=== PATIENT | female | born 1995 | race American Indian/Alaskan Native ===

== ENCOUNTER 2020-03-20 09:50 | Emergency (ER) | payer OTHER ==
[2020-03-20] MEDS ORDERED: AZITHROMYCIN 250 MG TAB PO ONE (10:51)
[2020-03-20] MEDS ORDERED: LIDOCAINE-MPF (1%) 10 MG/1 ML VIAL 5 ML INFILTRATI ONE (10:51)
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
[2020-03-20 11:35] LABS: Bilirubin,Urine NEG (Negative); Blood,Urine SM (Negative); Color,Urine Colorless (Yellow); Protein,Urine <15 mg/dL mg/dL (Negative); Urobilinogen,Urine < 2.0 mg/dL (<2.0); WBC,Urine < 1.0 /HPF (0.0-6.0)
[2020-03-20 11:40] VITALS: BP 107/77
[2020-03-20 12:02] LABS: HCG Qualitative,Urine Negative (Negative)
== END 2020-03-20 12:45 | disposition home or self-care (01) ==
LOC: ED 09:50
DX: T76.21XA Adult sexual abuse, suspected, initial encounter (principal); F17.200 Nicotine dependence, unspecified, uncomplicated; Z79.899 Other long term (current) drug therapy
CPT/HCPCS: 81001; 81025; 96372; 99283; J0696